=== PATIENT | female | born 1985 | race Caucasian/White ===

== ENCOUNTER 2020-02-01 19:11 | Emergency (ER) | payer OTHER, SELFPAY ==
[2020-02-01 19:18] VITALS: BP 125/63; PULSE 73; RESP 18; TEMP 37.7; O2SAT 98
--- NOTE | 2020-02-01 19:55 | ED.FEMALEGU ---
HPI - Female Genitourinary General Chief complaint: Urogenital-Female Stated complaint: kidney pain Time Seen by Provider: 02/01/20 19:40 Source: patient and RN notes reviewed Mode of arrival: ambulatory Limitations: no limitations History of Present Illness HPI Narrative: 34 year-old female who presents to [facility] care with complaints of bilateral flank pain for the past 3 days. Patient denies any burning with urination or any frequency of urination or any suprapubic discomfort. Patient denies any recent heavy lifting or any known injury to flank region. Patient denies any possibility of STD, states has not been sexually active. Patient states she has been taking Tylenol for her pain with no resolution. MD elicited complaint: flank pain (bilateral) Onset (ago): day(s) (2) Location of symptoms: flank Severity: moderate Female Urogenital Radiation: L Flank and R Flank Vaginal discharge: none Vaginal bleeding: none Urinary symptoms: Flank Pain Related Data Home Medications Medication Instructions Recorded Confirmed norethindrone-e.estradiol-iron 1 tablet DAILY 02/01/20 02/01/20 Allergies Allergy/AdvReac Type Severity Reaction Status Date / Time Penicillins Allergy Rash Verified 02/01/20 20:07 Review of Systems Review of Systems: Narrative: CONSTITUTIONAL: Positive fever,no chills, or sweats. EYES: Denies visual changes, redness, or discharge. ENT: Denies rhinorrhea, congestion, sore throat, or otalgia. CARDIOVASCULAR: Denies chest pain, palpitations, or edema. RESPIRATORY: Denies cough or dyspnea. GASTROINTESTINAL: Denies abdominal pain, nausea, vomiting, or diarrhea. GENITOURINARY: Denies dysuria or hematuria. SKIN: Denies rash or itching. MUSCULOSKELETAL: Positive bilateral flank pain, joint pain, or myalgia. NEUROLOGIC: Denies headache, numbness, or weakness. PSYCHIATRIC: Denies anxiety or depression. All systems reviewed & are unremarkable except as noted in HPI and below PMFSH Surgical History Surgical History (Updated 02/01/20 @ 20:12 by Geovanna Cox NP) History of tonsillectomy and adenoidectomy Previous section Social History Social History (Updated 02/04/20 @ 19:55 by Geovanna Cox NP) Smoking status: Smoker, status unknown Alcohol intake: unknown Substance use: unknown Living arrangements: with family Gender identity (if verbalized by the patient): Female Comments At time of signature, agree with nursing past medical, surgical, social history. There is no relevant family history pertinent to the presenting complaint Exam Narrative: Exam Narrative: GENERAL: Well-appearing, well-nourished, and in no acute distress. HEAD: Normocephalic, atraumatic. EYES: PERRLA and EOMI. ENT: Nares clear, no rhinorrhea or epistaxis. Mucous membranes moist. NECK: Supple.no lymphadenopathy CHEST: Clear to auscultation. No respiratory distress. HEART: Regular rate and rhythm. No murmur heard. Normal peripheral pulses. ABDOMEN: Soft, nontender, nondistended, normal active bowel sounds. EXTREMITIES: Normal range of motion. No edema,.bilateral flank pain stated with CVA tenderness on examination, denies any radiation of pain SKIN: Warm, dry, no rash. NEURO: No focal deficits. Alert and oriented x3. Course Vital Signs Vital signs: Vital Signs Temperature 37.7 C H 02/01/20 19:18 Pulse Rate 73 02/01/20 19:18 Respiratory Rate 18 02/01/20 19:18 Blood Pressure 125/63 02/01/20 19:18 Pulse Oximetry 98 02/01/20 19:18 Temperature 37.7 C H 02/01/20 19:18 Pulse Rate 73 02/01/20 19:18 Respiratory Rate 18 02/01/20 19:18 Blood Pressure 125/63 02/01/20 19:18 Pulse Oximetry 98 02/01/20 19:18 MDM - Female Genitourinary Differential Diagnosis Differential diagnosis: Likely urinary tract infection, cystitis and other (flank pain bilateral,) Medical Records Attestation: I reviewed the patient's medical records. Lab Data Attestation: I reviewed the patient's lab r
== END 2020-02-01 20:22 | disposition home or self-care (01) ==
PROVIDERS: Emergency Provider Registered Nurse
DX: N30.90 Cystitis, unspecified without hematuria (principal)
CPT/HCPCS: 81003; 87086; 87088; 99213; G0463